=== PATIENT | male | born 1970 ===

== ENCOUNTER 2023-08-04 17:29 | Emergency (ER) | payer OTHER, SELFPAY ==
--- NOTE | 2023-08-04 | ECG_ITS ---
Test Reason : s=ob Blood Pressure : / mmHG Vent. Rate : 099 BPM Atrial Rate : 099 BPM P-R Int : 136 ms QRS Dur : 084 ms QT Int : 346 ms P-R-T Axes : 050 028 212 degrees QTc Int : 444 ms Normal sinus rhythm T wave abnormality, consider anterolateral ischemia Abnormal ECG No previous ECGs available Referred By: Generic ED Physician Electronically Signed By:Scot Mulligan
--- NOTE | ~2023-08-04 | CT_ITS ---
EXAMINATION: CT CHEST WITHOUT CONTRAST CT ABDOMEN AND PELVIS WITHOUT CONTRAST CLINICAL INFORMATION: Left rib pain. Left flank pain. COMPARISON: No relevant prior examination available for comparison. TECHNIQUE: Contiguous axial thin section helical images of the chest, abdomen and pelvis were performed without IV contrast. The data set was reformatted in the coronal and sagittal planes and reviewed on an independent workstation. This CT examination was performed using dose optimization techniques as appropriate, variously including the following: *Automated exposure control *Adjustment of mA and/or kV according to patient size (this includes techniques or standardized protocols for targeted exams where dose is matched to indication/reason for exam; i.e. extremities or head) *Use of iterative reconstruction technique DLP: 391 mGy-cm. FINDINGS: LUNGS: There is a 0.2 cm nodule within the inferior aspect of the lateral right upper lobe (axial image 230/550). No additional pulmonary nodule, mass, or airspace consolidation. The central airways are patent. PLEURA: No pleural effusion or pneumothorax. No pleural mass or thickening. MEDIASTINUM: No cardiomegaly. No significant pericardial effusion. No thoracic aortic dilatation. No significant mediastinal or hilar lymphadenopathy. No coronary artery calcification. CHEST WALL/AXILLA: No lymphadenopathy. THYROID: Unremarkable. LIVER, GALLBLADDER, AND BILIARY TREE: Normal size, shape, and attenuation. No focal hepatic lesion. No intra or extrahepatic biliary ductal dilatation. The gallbladder is unremarkable with no evidence of radiopaque gallstones, gallbladder wall thickening, or obvious pericholecystic inflammatory changes. PANCREAS: Unremarkable. SPLEEN: Unremarkable. ADRENAL GLANDS: Anterior left adrenal nodule measuring up to 1.6 x 2.2 x 2.0 cm. This measures approximately -1 Hounsfield units. Findings are consistent with a lipid rich adenoma. No follow-up imaging is recommended. Unremarkable right adrenal gland. KIDNEYS AND URETERS: Normal size, shape, and attenuation. No hydronephrosis, hydroureter, or calculi. No perinephric stranding. BLADDER: Unremarkable. GASTROINTESTINAL TRACT: No bowel wall thickening or inflammatory change. No small or large bowel obstruction. The appendix is unremarkable. PERITONEAL CAVITY: No intra-abdominal free air, free fluid, mass, or organized fluid collection. ABDOMINAL WALL: Postsurgical change consistent with anterior abdominal wall hernia repair. No recurrent abdominal wall hernia. LYMPH NODES: No significant lymphadenopathy. VASCULAR: No abdominal aortic dilatation. Scattered atherosclerotic calcifications. The IVC is unremarkable. PELVIC VISCERA: The prostate and seminal vesicles are unremarkable. OSSEOUS STRUCTURES: Nondisplaced fracture through the posterior aspect of the left 11th rib (see axial image 59/66). No additional rib fracture. No additional acute osseous abnormality. Degenerative disease at L4-L5. No concerning lytic or blastic osseous lesion. CT/CT abdomen pelvis wo IV con IMPRESSION: 1. Nondisplaced fracture through the posterior aspect of the left 11th rib. No additional rib fracture. 2. No intra-abdominal mass, lymphadenopathy, or ascites. 3. Left adrenal nodule measuring up to 2.2 cm. Findings are consistent with a lipid rich adenoma. 4. There is a 0.2 cm nodule within the inferior aspect of the lateral right upper lobe. According to the UPDATED 2017 Fleischner Society recommendations, the advised follow-up imaging for nodules <6mm in the upper lobes is not necessarily required in low-risk patients. In high-risk patients with a nodule in the upper lobe and/or demonstrating suspicious morphology, an optional CT follow-up at 12 months may be obtained. If stable at 12 months, no further follow-up is recommended.
[2023-08-04 19:15] VITALS: BP 142/82; PULSE 84; RESP 18; TEMP 36.6; O2SAT 97; BMI 35.7
--- NOTE | 2023-08-04 19:23 | ED.GENADULT ---
HPI - General Adult General Chief complaint: General Medical Stated complaint: severe pain on side going to back, cracked ribs? Time Seen by Provider: 08/04/23 20:25 Source: patient and family Mode of arrival: ambulatory Limitations: no limitations History of Present Illness HPI narrative: 53 yo male with PMH of COPD, back pain on oxycodone hx of disc surgery lumbar spine not on blood thinners presents with c/o waking with sudden onset L flank pain lower than his usual back pain felt like a pop worsens with movement and cough. He notes his urine is slightly pink. No trauma. No loss of control of bowel or bladder. He denies saddle anesthesia. He tried percocet without relief. Normally goes to [facility] but waited all day in their waiting room and couldn't take it. MD complaint: flank pain Onset (ago): hour(s) (3am today) Location: abdomen and left Radiation: non-radiation Severity: severe Quality: stabbing Pain Consistency: constant Relieving factors: rest Exacerbating factors: immobilization and movement Associated symptoms: other (nausea, pink urine) Treatments prior to arrival: other (percocet) Related Data Previous Rx's Medication Instructions Recorded lidocaine 5 % topical patch 1 patch topical DAILY #30 ea 08/04/23 Allergies Allergy/AdvReac Type Severity Reaction Status Date / Time bee pollen [bee stings] Allergy Anaphylaxis Verified 08/04/23 19:14 Review of Systems Review of Systems: Constitutional : No Fever, No Chills ENT/Mouth : No sore throat Eyes: No Eye Pain, No Swelling, No Redness Cardiovascular : No Chest Pain, No SOB Respiratory : No Cough, No Sputum, No Wheezing Gastrointestinal : positive Nausea, no Vomiting, No Diarrhea, positive abdominal pain Genitourinary : no Dysuria, no urinary frequency, positive Hematuria, positive Flank Pain, no hesitancy Musculoskeletal : No joint pain, No Myalgias Skin : No Skin Lesions, No rash Neuro : No Weakness, No Numbness, No Headache Psych : No Anxiety/Panic, No Depression Heme/Lymph: No Bruising, No Lymphadenopathy Endocrine : No Polyuria, No Polydipsia All other systems reviewed and are negative PMFSH Past Medical History Attestation statement: The following information was validated with the patient. Medical History (Updated 08/04/23 @ 22:28 by Billie Patrick DO) Back pain COPD (chronic obstructive pulmonary disease) Surgical History (Updated 08/04/23 @ 21:28 by Billie Patrick DO) Previous back surgery Social History Social History (Updated 08/04/23 @ 21:29 by Billie Patrick DO) Patient Tobacco Use Status: Current everyday Tobacco user Advance Directives: No Advance Directives Information Provided: No Physical Exam ED Vital Signs: Vital Signs - 24 hr 08/04/23 19:15 08/04/23 19:48 08/04/23 19:56 Temperature 97.8 F 98.5 F Pulse Rate 84 118 H 108 H Respiratory Rate 18 16 24 H Blood Pressure 142/82 H 157/103 H Pulse Oximetry 97 96 98 Oxygen Delivery Method Room Air Room Air Room Air 08/04/23 20:40 Temperature 97.5 F Pulse Rate 91 Respiratory Rate 17 Blood Pressure 136/84 Pulse Oximetry 95 Oxygen Delivery Method Room Air BMI result Body Mass Index 35.7 Appearance: Alert. Oriented X3. in pain mild acute distress. Eyes: Pupils equal, round and reactive to light. ENT: Pharynx normal. Neck: Normal inspection. Neck supple. CVS: Normal heart rate and rhythm. Pulses normal. Respiratory: No respiratory distress. Breath sounds normal. Abdomen: Soft and nontender. Back: L CVA ttp Skin: Skin warm and dry. Normal skin color. Normal skin turgor. Extremities: No lower extremity edema. No calf ttp Neuro: Oriented X 3. No motor deficit. No sensory deficit. Course Course Course Narrative: This is a rapid medical exam: Additional HPI, ROS, PE not included below will be deferred to primary provider. Patient is a 53-year-old male presenting to the emergency department with complaint of left mid back pain worse with coughing since 3:00 a.m.. States he took Percocet which is prescribed to him at home with little relief. Was seen at urgent care and had urine tested. Denies fevers. States pain is 10/10. Plan: labs, viral swabs, x-ray Reevaluation(s) Reevaluation #1: pain improved with IV dilaudid Reevaluation #2: pain resolved sleeping EKG appears old per Status Overload records waiting for final report Reevaluation #3: EKG findings old from Jun 13 2022 [facility] records Medications Administered Discontinued Medications Generic Name Dose Route Start Last Admin Trade Name Freq PRN Reason Stop Dose Admin Hydromorphone HCl 1 mg 08/04/23 21:09 08/04/23 21:35 Hydromorphone Hcl 1 Mg/Ml Syringe IVPUSH 08/04/23 21:10 1 mg ONCE ONE Administration Protocol Ketorolac Tromethamine 15 mg 08/04/23 22:16 08/04/23 22:56 Ketorolac Tromethamine 15 Mg/Ml Vial IVPUSH 08/04/23 22:17 15 mg ONCE ONE Administration Lidocaine 1 patch 08/04/23 22:16 08/04/23 22:57 Lidocaine 4 % Patch Adh..Patch TRANSDERMA 08/04/23 22:17 1 patch ONCE ONE Administration Protocol Morphine Sulfate 15 mg 08/04/23 22:16 08/04/23 22:57 Morphine Sulfate Immed Release 15 Mg Tablet PO 08/04/23 22:17 15 mg ONCE ONE Administration Ondansetron HCl 4 mg 08/04/23 21:09 08/04/23 21:35 Ondansetron Hcl 4 Mg/2 Ml Vial IVPUSH 08/04/23 21:10 4 mg ONCE ONE Administration Medical Decision Making Medical Decision Making [facility] Narrative: 53 yo male with hx of COPD and back pain s/p lumbar disc surgery years ago presents with several hours abrupt onset L flank pain and pink tinged urine no hx of renal colic - at this time no cauda equina symptoms has no abdominal pain on exam. He will need labs, UA, CT scan for renal colic/rib fracture given his degree of pain also possible PTX. He has abnormal EKG but denies chest pain - trop ordered and will be obtaining prior from [facility]. IV dilaudid for pain ordered Differential Diagnosis Differential Diagnoses: The differential diagnosis associated with the presentation includes renal colic, back pain, atypical ACS, rib fracture Admission/Observation Consideration of admission/observation: Escalation of care including admission/observation considered VS stable, CT scans show stable L 11th rib fracture Lab Data [facility] Lab Attestation statement: I reviewed the patient's lab results. 08/04/23 20:27 08/04/23 20:27 Labs: Lab Results 08/04/23 08/04/23 Range/Units 20:27 22:55 WBC 8.4 (4.8-10.8) X10*3/uL RBC 3.94 L (4.60-5.80) X10*6/uL Hgb 13.1 L (14.0-18.0) g/dl Hct 38.3 L (42.0-52.0) % MCV 97.2 (80.0-98.0) fL MCH 33.2 H (27.0-33.0) pg MCHC 34.2 (31.0-36.0) g/dl RDW 11.9 (11.0-16.0) % Plt Count 269 (160-400) X10*3/uL MPV 9.8 (9.4-12.4) fL Immature Gran % (Auto) 0.2 (0.0-0.4) % Neut % (Auto) 70.1 (45-73) % Lymph % (Auto) 19.7 L (20-40) % [place] % (Auto) 7.7 (2-11) % Eos % (Auto) 1.7 (0-4) % Baso % (Auto) 0.6 (0-2) % Lymph # (Auto) 1.7 (1.2-4.9) X10*3/uL [place] # (Auto) 0.7 (0.1-1.2) X10*3/uL Eos # (Auto) 0.1 (0.0-0.4) X10*3/uL Baso # (Auto) 0.1 (0.0-0.2) X10*3/uL Abs Immat Gran (auto) 0.02 (0.00-0.03) X10*3/uL Absolute Neuts (auto) 5.9 (2.0-8.3) x10*3/uL Absolute Nucleated RBC 0.000 (0.0-0.012) X10*3/uL Nucleated RBC % (auto) 0.0 (0.0-0.2) /100WBC PT 11.6 (11.1-13.3) SEC INR 1.0 (0.9-1.1) Sodium 140 (135-145) mmol/L Potassium 4.0 (3.3-5.1) mmol/L Chloride 109 H (96-108) mmol/L Carbon Dioxide 21 L (22-29) mmol/L Anion Gap 14 (12-20) BUN 19 H (9-16) mg/dL Creatinine 0.97 (0.5-1.4) mg/dL Estim Creat Clear Calc 112.8 Estimated GFR > 60 Random Glucose 157 H (60-115) mg/dL Calcium 9.3 (8.4-10.2) mg/dL Total Bilirubin 0.2 (0.0-1.0) mg/dL AST 19 (5-37) U/L ALT 18 (0-40) U/L Alkaline Phosphatase 68 (39-117) U/L Troponin I High Sens < 2.7 (<3.5-35.0) ng/L Total Protein 7.5 (6.5-8.0) g/dL Albumin 4.4 (3.5-5.0) g/dL Urine Color Yellow Urine Appearance Clear Urine pH 5.0 (5.0-9.0) Ur Specific [place] 1.025 (1.005-1.025) Urine Protein Negative (Neg-Trace) mg/dL Urine Glucose (UA) Negative (Negative) mg/dL Urine Ketones Trace (Negative) mg/dL Urine Blood Negative (Negative) Urine Nitrite Negative (Negative) Ur Leukocyte Esterase Negative (Negative) COVID-19 (ML) Negative (Negative) COVID-19 Clin Com See Note Influenza Type A (ADRIANA) Negative (Negative) Influenza Type B (ADRIANA) Negative (Negative) Influenza A & B Note See Note Independent Interpretation I performed an independent interpretation of an: EKG, Plain X-Ray and CT Scan (L 11th rib fracture) Interpretation: Rate: 99 Rhythm: NSR Thayer: normal Normal P waves. Normal ANI. Normal QRS complex. ST T wave : no LYNNETTE, inverted t waves deep I and aVL, V3-V6 qTC: 444 prior studies: no priors The study has been interpreted contemporaneously by me. . Radiology Impression Discussion of test interpretation with radiology: I have reviewed the radiologist's reading. Independent Historian Clinical information obtained from an independent historian. History obtained from or confirmed by: Spouse External Record Review External record reviewed: Outpatient record Prescription Management I considered prescription management with: Pain Medication and Other Critical Care Time Critical Care Time Critical Care Time: Yes Total Critical Care Time: 45 Attestation: pain improved with IV dilaudid, records requested from [facility], repeat assessments I attest to this time spent taking care of the patient Discharge Plan Discharge Clinical Impression: Fracture of rib Qualifiers: Encounter type: initial encounter Rib fracture type: single rib Fracture type: closed Laterality: left Qualified Code(s): S22.32XA - Fracture of one rib, left side, initial encounter for closed fracture Patient Disposition: Home, Self-Care Instructions: Rib Fracture (ED) Additional Instructions: you need to limit lifting to 10lbs for the next 4 weeks, return for worsening pain, fevers, productive cough, inability to breath or any other concerns. follow up with your doctor in the next few days. use incentive spirometer while awake every couple of hours - take 5 to 10 deep breaths to prevent pneumonia L side 11th rib fracture noted 1. Nondisplaced fracture through the posterior aspect of the left 11th rib. No additional rib fracture. 2. No intra-abdominal mass, lymphadenopathy, or ascites. 3. Left adrenal nodule measuring up to 2.2 cm. Findings are consistent with a lipid rich adenoma. benign 4. There is a 0.2 cm nodule within the inferior aspect of the lateral right upper lobe. According to the UPDATED 2017 Fleischner Society recommendations, the advised follow-up imaging for nodules <6mm in the upper lobes is not necessarily required in low-risk patients. In high-risk patients with a nodule in the upper lobe and/or demonstrating suspicious morphology, an optional CT follow-up at 12 months may be obtained. If stable at 12 months, no further follow-up is recommended. Prescriptions: New lidocaine 5 % adhesive patch,medicated 1 patch topical DAILY Qty: 30 0RF Rx Instructions: leave on most painful area for up to 12 hrs
[2023-08-04 19:48] VITALS: BP 157/103; PULSE 118; RESP 16; TEMP 36.9; O2SAT 96
[2023-08-04 19:56] VITALS: PULSE 108; RESP 24; O2SAT 98
[2023-08-04 20:34] LABS: MANUAL DIFF FLAG NO
[2023-08-04 20:36] LABS: Basophils Absolute Auto 0.1 X10*3/uL (0.0-0.2); Basophils Percent Auto 0.6 % (0-2); Eosinophils Absolute Auto 0.1 X10*3/uL (0.0-0.4); Eosinophils Percent Auto 1.7 % (0-4); Hematocrit 38.3 % (42.0-52.0); Hemoglobin 13.1 g/dl (14.0-18.0); Imm Gran Abs Auto 0.02 X10*3/uL (0.00-0.03); Imm Gran Pct Auto 0.2 % (0.0-0.4); Lymphocytes Absolute Auto 1.7 X10*3/uL (1.2-4.9); Lymphocytes Percent Auto 19.7 % (20-40); Mean Corpuscular HGB Conc 34.2 g/dl (31.0-36.0); Mean Corpuscular Hemoglobin 33.2 pg (27.0-33.0); Mean Corpuscular Volume 97.2 fL (80.0-98.0); Mean Platelet Volume 9.8 fL (9.4-12.4); Monocytes Absolute Auto 0.7 X10*3/uL (0.1-1.2); Monocytes Percent Auto 7.7 % (2-11); Neutrophils Absolute Auto 5.9 x10*3/uL (2.0-8.3); Neutrophils Percent Auto 70.1 % (45-73); Platelet Count 269 X10*3/uL (160-400); Red Blood Count 3.94 X10*6/uL (4.60-5.80); Red Cell Distribution Width 11.9 % (11.0-16.0); White Blood Count 8.4 X10*3/uL (4.8-10.8)
--- NOTE | 2023-08-04 20:36 | MHC.EDTECH ---
Patient ekg taken and was read by Provider ,blood drawn and sent to lab .
[2023-08-04 20:40] VITALS: BP 136/84; PULSE 91; RESP 17; TEMP 36.4; O2SAT 95
[2023-08-04 20:42] LABS: Prothrombin Time 11.6 SEC (11.1-13.3)
[2023-08-04 20:51] LABS: Alanine Aminotransferase 18 U/L (0-40); Albumin Level 4.4 g/dL (3.5-5.0); Alkaline Phosphatase 68 U/L (39-117); Anion Gap 14 (12-20); Aspartate Amino Transferase 19 U/L (5-37); Bilirubin Total 0.2 mg/dL (0.0-1.0); Blood Urea Nitrogen 19 mg/dL (9-16); Calcium 9.3 mg/dL (8.4-10.2); Carbon Dioxide 21 mmol/L (22-29); Chloride 109 mmol/L (96-108); Creatinine Clr Calc Pharmacy 112.8; Estimated Glomerular Filt Rate > 60; Glucose Random 157 mg/dL (60-115); Sodium 140 mmol/L (135-145); Total Protein 7.5 g/dL (6.5-8.0)
[2023-08-04 20:54] LABS: COVID-19 Test Negative (Negative); IDNOW Serial# 08D9AD1C
[2023-08-04 20:55] LABS: IDNOW Serial# 152EDE1D; Influenza A Negative (Negative); Influenza B2 Negative (Negative)
[2023-08-04 21:06] LABS: Troponin-I High Sensitivity < 2.7 ng/L (<3.5-35.0)
--- NOTE | 2023-08-04 21:15 | MHC.EDTECH ---
EKG records requested from [facility] at [id number]
[2023-08-04] MEDS: ondansetron HCL 4 MG/2 ML VIAL IVPUSH (21:35)
[2023-08-04] MEDS: HYDROmorphone HCl 1 MG/ML SYRINGE IVPUSH (21:35)
[2023-08-04] MEDS: Ketorolac Tromethamine 15 MG/ML VIAL IVPUSH (22:56)
[2023-08-04] MEDS: Lidocaine 4 % Patch ADH..PATCH 1 PATCH TRANSDERMA (22:57)
[2023-08-04] MEDS: Morphine Sulfate Immed Release 15 MG TABLET PO (22:57)
[2023-08-04 23:04] LABS: Appearance Urine Clear; Color Urine Yellow; Glucose Urine UA Negative (Negative); Leukocyte Esterase Urine Negative (Negative); Nitrite Urine Negative (Negative); Specific Gravity - Urine 1.025 (1.005-1.025); Urine Blood Negative (Negative); Urine Ketones Trace mg/dL (Negative); Urine Protein Negative (Neg-Trace)
[2023-08-05 00:53] VITALS: BP 104/66; PULSE 75; RESP 17; TEMP 36.9; O2SAT 94
== END 2023-08-05 02:26 | disposition home or self-care (01) ==
PROVIDERS: Emergency Medicine; Registered Nurse Emergency; Emergency Provider Emergency Medicine; PCP Nurse Practitioner Family
DX: S22.32XA Fracture of one rib, left side, initial encounter for closed fracture (principal); X50.9XXA Other and unspecified overexertion or strenuous movements or postures, initial encounter; J44.9 Chronic obstructive pulmonary disease, unspecified; Z11.52 Encounter for screening for COVID-19; F17.200 Nicotine dependence, unspecified, uncomplicated; G89.4 Chronic pain syndrome; M54.50 Low back pain, unspecified; Z79.891 Long term (current) use of opiate analgesic; Y93.9 Activity, unspecified; Y92.019 Unspecified place in single-family (private) house as the place of occurrence of the external cause; Y99.9 Unspecified external cause status
CPT/HCPCS: 36415; 71250; 74176; 80053; 81003; 84484; 85025; 85610; 87502; 87635; 93005; 96374; 96375; 99284; J1170; J1885; J2405

== ENCOUNTER → 2023-08-04 20:11 | Outpatient (BNV) | payer OTHER, SELFPAY | PROVIDERS: Emergency Provider Emergency Medicine; PCP Nurse Practitioner Family; Visit Provider Internal Medicine Cardiovascular Disease | DX: R94.31 Abnormal electrocardiogram [ECG] [EKG] (principal) | CPT/HCPCS: 93010 ==

== ENCOUNTER 2024-07-19 18:26 | Emergency (ER) | payer OTHER, SELFPAY ==
--- NOTE | ~2024-07-19 | US_ITS ---
CLINICAL HISTORY: pain Venous duplex ultrasound left lower extremity Comparison: None Findings: The visualized deep veins are fully compressible with normal Doppler color flow and spectral tracings. No popliteal cyst. IMPRESSION: 1. Negative for left lower extremity deep vein thrombosis. This document has been electronically signed by: Fatoumata Blanca MD on 07/19/2024 19:50:10
--- NOTE | ~2024-07-19 | XR_ITS ---
CLINICAL HISTORY: pain 3 view left ankle Comparison: None Findings: No acute fractures or dislocations. Periarticular osteophyte formation at the tibiotalar, talonavicular, naviculocuneiform, and subtalar joints. No ankle effusion. No radiopaque foreign body. IMPRESSION: 1. No acute findings. This document has been electronically signed by: Fatoumata Blanca MD on 07/19/2024 19:23:10
[2024-07-19 18:45] VITALS: BP 149/86; PULSE 84; RESP 18; TEMP 36.4; O2SAT 98; BMI 35.9
--- NOTE | 2024-07-19 18:49 | ED.GENADULT ---
HPI - General Adult General Chief complaint: Extremity Problem Stated complaint: Lt foot swelling/No Injury Time Seen by Provider: 07/19/24 23:48 Source: patient Limitations: no limitations History of Present Illness ED Provider: Missy Greene PA-C HPI narrative: 53-year-old male with a history of chronic back pain, COPD presents with atraumatic left ankle and foot pain x1 week. Related Data Previous Rx's ?Medication ?Instructions ?Recorded lidocaine 5 % topical patch 1 patch topical DAILY #30 ea 08/04/23 methylprednisolone 4 mg tablets in 4 mg PO QAM #1 ea 07/20/24 a dose pack (Medrol (Abdirizak)) Allergies Allergy/AdvReac Type Severity Reaction Status Date / Time bee pollen [bee stings] Allergy Anaphylaxis Verified 07/19/24 18:48 Review of Systems Review of Systems: Yes all other systems are reviewed and are negative Constitutional: Constitutional: Denies fatigue and Denies fever(s) Cardiovascular: Cardiovascular: Denies chest pain, Denies leg edema and Denies dyspnea Respiratory: Respiratory: Denies dyspnea Musculoskeletal: Musculoskeletal: Reports arthralgias and Reports joint swelling Integumentary/Breasts: Skin/Breast: Denies erythema Neurologic: Denies paresthesias Endocrine: Endocrine: Denies fatigue FORMERLY [facility], [facility] Past Medical History Attestation statement: The following information was validated with the patient. Medical History (Updated 07/21/24 @ 00:02 by Natasha Jackson) Back pain COPD (chronic obstructive pulmonary disease) Surgical History (Updated 08/04/23 @ 21:28 by Billie Patrick DO) Previous back surgery Social History Social History (Updated 08/04/23 @ 21:29 by Billie Patrick DO) Patient Tobacco Use Status: Current everyday Tobacco user Smoked in Last 30 Days: No Use of substances other than those prescribed or required for medical reasons: No Advance Directives: No Advance Directives Information Provided: Yes Physical Exam ED Vital Signs: Vital Signs - 24 hr 07/19/24 18:45 07/19/24 23:43 Temperature 97.6 F 99.5 F Pulse Rate 84 83 Respiratory Rate 18 15 Blood Pressure 149/86 H 143/92 H Pulse Oximetry 98 98 Oxygen Delivery Method Room Air Room Air BMI result Body Mass Index 35.9 Const Other: Alert Orientation/consciousness: patient oriented x3 Resp Effort & Inspection: normal respiratory effort Cardio Other: Normal peripheral perfusion, trace pedal edema left foot ankle Skin Other: Warm dry no rash Neuro General: patient oriented x3, no focal motor deficits and CN's II-XI intact bilaterally Extrem Other: Mild swelling of the ankle, able to flex and extend, no overlying erythema or warmth Psych Other: Cooperative Course Course Course Narrative: RME, this is a rapid medical exam performed by [address] please refer to primary provider for complete H&P- 53-year-old male presents for evaluation of left ankle pain. Denies any recent trauma. His pain has been present for 1 week. He reports swelling to the area and clinically does have some edema. There is no calf tenderness. Plan for labs, x-ray, ultrasound Medical Decision Making Medical Decision Making [facility] Narrative: 53-year-old male with a history of chronic back pain, COPD presents with atraumatic left ankle and foot pain x1 week. No relevant chronic issues History: Per patient I have considered the following differential diagnoses: Fracture, dislocation, arthritis, gout, septic joint, DVT Plan: X-rays and ultrasound were obtained from triage, he has arthritis, no clot. He has full range of motion of the ankle despite his discomfort, this is not a septic joint. Screening labs were also obtained, including inflammatory markers which are not elevated. I have independently reviewed the following tests: Labs: No leukocytosis, not anemic, both ESR and CRP are negative, no electrolyte abnormalities DVT LLE: Findings: The visualized deep veins are fully compressible with normal Doppler color flow and spectral tracings. No popliteal cyst. IMPRESSION: 1. Negative for left lower extremity deep vein thrombosis. This document has been electronically signed by: Fatoumata Blanca MD on 07/19/2024 19:50:10 X-ray left ankle:Findings: No acute fractures or dislocations. Periarticular osteophyte formation at the tibiotalar, talonavicular, naviculocuneiform, and subtalar joints. No ankle effusion. No radiopaque foreign body. IMPRESSION: 1. No acute findings. This document has been electronically signed by: Fatoumata Blanca MD on 07/19/2024 19:23:10 Lab Data 07/19/24 19:30 07/19/24 19:30 Labs: Lab Results 07/19/24 Range/Units 19:30 WBC 5.7 (4.8-10.8) X10*3/uL RBC 3.72 L (4.60-5.80) X10*6/uL Hgb 11.9 L (14.0-18.0) g/dl Hct 35.8 L (42.0-52.0) % MCV 96.2 (80.0-98.0) fL MCH 32.0 (27.0-33.0) pg MCHC 33.2 (31.0-36.0) g/dl RDW 11.7 (11.0-16.0) % Plt Count 246 (160-400) X10*3/uL MPV 10.3 (9.4-12.4) fL Immature Gran % (Auto) 0.2 (0.0-0.4) % Neut % (Auto) 54.3 (45-73) % Lymph % (Auto) 36.3 (20-40) % [place] % (Auto) 6.2 (2-11) % Eos % (Auto) 2.5 (0-4) % Baso % (Auto) 0.5 (0-2) % Lymph # (Auto) 2.1 (1.2-4.9) X10*3/uL [place] # (Auto) 0.4 (0.1-1.2) X10*3/uL Eos # (Auto) 0.1 (0.0-0.4) X10*3/uL Baso # (Auto) 0.0 (0.0-0.2) X10*3/uL Abs Immat Gran (auto) 0.01 (0.00-0.03) X10*3/uL Absolute Neuts (auto) 3.1 (2.0-8.3) x10*3/uL Absolute Nucleated RBC 0.000 (0.0-0.012) X10*3/uL Nucleated RBC % (auto) 0.0 (0.0-0.2) /100WBC ESR 5 (0-15) MM/HR Sodium 139 (135-145) mmol/L Potassium 4.0 (3.3-5.1) mmol/L Chloride 109 H (96-108) mmol/L Carbon Dioxide 24 (22-29) mmol/L Anion Gap 10 L (12-20) BUN 14 (9-16) mg/dL Creatinine 1.07 (0.5-1.4) mg/dL Estim Creat Clear Calc 102.6 Estimated GFR > 60 Random Glucose 88 (60-115) mg/dL Calcium 8.8 (8.4-10.2) mg/dL Total Bilirubin 0.3 (0.0-1.0) mg/dL AST 23 (5-37) U/L ALT 16 (0-40) U/L Alkaline Phosphatase 53 (39-117) U/L C-Reactive Protein 0.20 (< or = 0.50) mg/dL Total Protein 6.9 (6.5-8.0) g/dL Albumin 4.0 (3.5-5.0) g/dL Lipase 25 (8-78) U/L Discharge Plan Discharge Clinical Impression: Arthritis of ankle, left Patient Disposition: Home, Self-Care Instructions: Arthritis (ED) Additional Instructions: You were found to have significant arthritis in your ankle. See home care instructions. Use the steroid taper as directed, take the medication in the mornings. Follow up with your primary care provider as needed. The ultrasound of the left lower extremity was negative for a clot. You had no lab abnormalities. Prescriptions: New methylprednisolone [Medrol (Abdirizak)] 4 mg tablets,dose pack 4 mg PO QAM Qty: 1 0RF No Action lidocaine 5 % adhesive patch,medicated 1 patch topical DAILY Qty: 30 0RF Rx Instructions: leave on most painful area for up to 12 hrs Interventions: ED Discharge Assessment Last Done: 07/20/24 00:57 Discharge Date/Time: 07/20/24 00:57 Print Language: [place]an
[2024-07-19 19:42] LABS: MANUAL DIFF FLAG NO
[2024-07-19 19:45] LABS: Hemoglobin 11.9 g/dl (14.0-18.0); Imm Gran Abs Auto 0.01 X10*3/uL (0.00-0.03); Imm Gran Pct Auto 0.2 % (0.0-0.4); PLT CLUMP 1; SCAN SMEAR FLAG 1; WBC ABN SCTR 1
[2024-07-19 19:47] LABS: Basophils Percent Auto 0.5 % (0-2); Eosinophils Absolute Auto 0.1 X10*3/uL (0.0-0.4); Eosinophils Percent Auto 2.5 % (0-4); Hematocrit 35.8 % (42.0-52.0); Lymphocytes Absolute Auto 2.1 X10*3/uL (1.2-4.9); Lymphocytes Percent Auto 36.3 % (20-40); Mean Corpuscular HGB Conc 33.2 g/dl (31.0-36.0); Mean Corpuscular Volume 96.2 fL (80.0-98.0); Mean Platelet Volume 10.3 fL (9.4-12.4); Monocytes Absolute Auto 0.4 X10*3/uL (0.1-1.2); Monocytes Percent Auto 6.2 % (2-11); Neutrophils Absolute Auto 3.1 x10*3/uL (2.0-8.3); Neutrophils Percent Auto 54.3 % (45-73); Platelet Count 246 X10*3/uL (160-400); Red Blood Count 3.72 X10*6/uL (4.60-5.80); Red Cell Distribution Width 11.7 % (11.0-16.0); WBC ABN SCTR FOR CBC 1; White Blood Count 5.7 X10*3/uL (4.8-10.8)
[2024-07-19 20:07] LABS: Alanine Aminotransferase 16 U/L (0-40); Anion Gap 10 (12-20); Aspartate Amino Transferase 23 U/L (5-37); Bilirubin Total 0.3 mg/dL (0.0-1.0); Blood Urea Nitrogen 14 mg/dL (9-16); Calcium 8.8 mg/dL (8.4-10.2); Carbon Dioxide 24 mmol/L (22-29); Chloride 109 mmol/L (96-108); Creatinine Clr Calc Pharmacy 102.6; Estimated Glomerular Filt Rate > 60; Glucose Random 88 mg/dL (60-115); Lipase 25 U/L (8-78); Sodium 139 mmol/L (135-145); Total Protein 6.9 g/dL (6.5-8.0)
--- OUTSIDE RECORDS SUMMARY | 2024-07-19 20:14 | XMS_ITS | Clinical Summary ---
Author Organization [facility] Address [address] [place] [address] Phone Care Team Providers Care Service Establishment Attendant Name Role Phone Simone Zaman MD Primary Care Provider [phone] Encounters Date Type Department Care Team Description 07/19/2024 5:18 PM EST - 07/19/2024 6:16 PM EST Emergency [facility] Emergency [address] [place] [address] Discharge Disposition: Home or Self Care from Last 3 Months Social History Tobacco Use Types Packs/Day Years Used Date Smoking Tobacco: Every Day Cigarettes Smokeless Tobacco: Never Sex and Gender Information Value Date Recorded Sex Assigned at Male 07/19/2024 6:08 PM EST Gender Identity Male 07/19/2024 6:08 PM EST Sexual Orientation Choose not to disclose 2024 6:08 PM EST Obstetrics History Plan of Treatment Health Maintenance Due Date Last Done Comments Pneumococcal Vaccine: Pediat rics (0 to 5 Years) and At-Risk Patients (6 to 64 Years) (1 of 2 - PCV) 1975 DTaP,Tdap,and Td Vaccines (1 - Tdap) 1988 Hepatitis B Vaccines (1 of 3 - 19+ 3-dose series) 1988 Zoster Vaccines (1 of 2) 2019 Cholesterol Screening (Lipid Panel) 05/23/2022 Colorectal Cancer Screening: Colonoscopy 05/23/2022 Depression Screening 05/23/2022 HIV Screening 05/23/2022 Hepatitis C Screening 05/23/2022 Social Influencers of Health Screening 05/23/2022 COVID-19 Vaccine (1 - 2023-2 5 season) 2024 Influenza Vaccine (#1) 2024 HIB Vaccines Aged Out No longer eligi ble based on patient's age to complete this topic HPV Vaccines Aged Out No longer eligi ble based on patient's age to complete this topic Hepatitis A Vaccines Aged Out No long er eligible based on patient's age to complete this topic IPV Vaccines Aged Out No longer eligi ble based on patient's age to complete this topic MMR Vaccines Aged Out No longer eligi ble based on patient's age to complete this topic Meningococcal ACWY Vaccine Aged Out N o longer eligible based on patient's age to complete this topic RSV Immunization Patients Un jonathan 20 months Aged Out No longer eligible b ased on patient's age to complete this topic Varicella Vaccines Aged Out No longer eligible based on patient's age to complete this topic Advance Directives Documents on File Type Date 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 Health Care Decision (hx) 02/03/2018 AD MONTANEZ DIRECTIVE Health Care Decision (hx) 02/03/2018 AD MONTANEZ DIRECTIVE Health Care Decision (hx) 02/03/2018 AD MONTANEZ DIRECTIVE Health Care Decision (hx) 02/03/2018 AD MONTANEZ DIRECTIVE Health Care Decision (hx) 02/03/2018 AD MONTANEZ DIRECTIVE Health Care Decision (hx) 02/03/2018 AD MONTANEZ DIRECTIVE Health Care Decision (hx) 02/03/2018 AD MONTANEZ DIRECTIVE Health Care Decision (hx) 02/03/2018 AD MONTANEZ DIRECTIVE Health Care Decision (hx) 02/03/2018 AD MONTANEZ DIRECTIVE Health Care Decision (hx) 02/03/2018 AD MONTANEZ DIRECTIVE Health Care Decision (hx) 02/03/2018 AD MONTANEZ DIRECTIVE Health Care Decision (hx) 02/03/2018 AD MONTANEZ DIRECTIVE Health Care Decision (hx) 02/03/2018 AD MONTANEZ DIRECTIVE Health Care Decision (hx) 02/03/2018 AD MONTANEZ DIRECTIVE Health Care Decision (hx) 02/03/2018 AD MONTANEZ DIRECTIVE Health Care Decision (hx) 02/03/2018 AD MONTANEZ DIRECTIVE Health Care Decision (hx) 02/03/2018 AD MONTANEZ DIRECTIVE Health Care Decision (hx) 02/03/2018 AD MONTANEZ DIRECTIVE Health Care Decision (hx) 02/03/2018 AD MONTANEZ DIRECTIVE Health Care Decision (hx) 02/03/2018 AD MONTANEZ DIRECTIVE Health Care Decision (hx) 02/03/2018 AD MONTANEZ DIRECTIVE Health Care Decision (hx) 02/03/2018 AD MONTANEZ DIRECTIVE Health Care Decision (hx) 02/03/2018 AD MONTANEZ DIRECTIVE Health Care Decision (hx) 02/03/2018 AD MONTANEZ DIRECTIVE Care Teams Service Establishment Attendant Relationship Specialty Start Date End Date Simone Zaman MD [address] [place] [address] PCP - General Internal Medicine 07/23/20
--- OUTSIDE RECORDS SUMMARY | 2024-07-19 20:14 | XMS_ITS | Clinical Summary ---
Author Organization [facility] Address [address] [place] [address] Care Team Providers Care Cigar Sorter Name Role Phone Simone Zaman MD Primary Care Provider [phone] Social History Tobacco Use Types Packs/Day Years Used Date Smoking Tobacco: Never Assessed Sex and Gender Information Value Date Recorded Sex Assigned at Male 09/19/2018 9:11 AM EDT Gender Identity Not on file Sexual Orientation Not on file Plan of Treatment Health Maintenance Due Date Last Done Comments Hepatitis B Vaccines (1 of 3 - 3-dose series) 1969 Hepatitis C Screening 1969 COVID-19 Vaccine (#1) 01/31/1970 Depression Screening 1981 Preventative Health Evaluation 1987 DTap / Tdap / Td (1 - Tdap) 1988 Colon Cancer Screening (Colonoscopy) 2014 Shingrix-Zoster Vaccine (1 of 2) 2019 Influenza Vaccine (#1) 2024 Pneumococcal Vaccine Aged Out No long er eligible based on patient's age to complete this topic RSV Ped < 20 months Aged Out No longe r eligible based on patient's age to complete this topic Care Teams Cigar Sorter Relationship Specialty Start Date End Date Simone Zaman MD [address] [place] [address] PCP - General Internal Medicine 07/23/20
[2024-07-19 20:22] LABS: Erythrocyte Sedimentation Rate 5 MM/HR (0-15)
[2024-07-19 20:26] LABS: Alkaline Phosphatase 53 U/L (39-117)
[2024-07-19 23:43] VITALS: BP 143/92; PULSE 83; RESP 15; TEMP 37.5; O2SAT 98
--- NOTE | 2024-07-20 00:53 | PC.NURSE ---
Took over care from TONIA Devine at 00:54am, reviewed discharge instructions with pt. pt verbalized understanding, no sign of distress upon discharge. pt had a steady gait.
[2024-07-20 00:57] VITALS: BP 143/92; PULSE 83; RESP 15; TEMP 37.5; O2SAT 98
== END 2024-07-20 00:57 | disposition home or self-care (01) ==
PROVIDERS: Physician Assistant; Emergency Provider Emergency Medicine; PCP Nurse Practitioner Family
DX: M19.072 Primary osteoarthritis, left ankle and foot (principal); M25.572 Pain in left ankle and joints of left foot
CPT/HCPCS: 36415; 73610; 80053; 83690; 85025; 85652; 86140; 93971; 99284

== ENCOUNTER → 2024-07-19 18:49 | Outpatient (BNV) | payer OTHER, SELFPAY | PROVIDERS: PCP Nurse Practitioner Family; Visit Provider Radiology Diagnostic Radiology | DX: M25.572 Pain in left ankle and joints of left foot (principal) | CPT/HCPCS: 73610; 93971 ==